=== PATIENT | female | born 1970 | race Two or more races ===

== ENCOUNTER 2023-12-20 12:02 | Emergency (ER) | payer OTHER, SELFPAY ==
[2023-12-20 12:25] VITALS: BP 124/69
[2023-12-20] MEDS: TORADOL 30 MG IM (13:08)
[2023-12-20] MEDS: ROXICODONE 5 MG PO (13:08)
--- NOTE | 2023-12-20 14:22 | ED.GENMED ---
History of Present Illness
General
Chief Complaint: Musculo-Skeletal Complaint
Time Seen by Provider: 12/20/23 12:39
History of Present Illness
History of Present Illness:
53-year-old female presents the emergency department for evaluation of left-sided low back pain rating to the left hip for the past 2 to 3 days. Denies any falls or trauma. She is able to ambulate however has excruciating pain with weightbearing
on the left lower extremity. No fevers or chills. Denies any nausea or vomiting. No recent upper respiratory tract infections. Has taken ibuprofen without relief
Review of Systems
Review of Systems
Allergies reviewed?: Yes
All Other Systems: ROS reviewed and negative except as documented in HPI and ROS
Phy Exam
Physical Exam
Physical Exam:
GEN: Well appearing, NAD, WDWN
HEENT: Oral mucosa moist, no scleral icterus
Cardiac: Regular rate
Lung: No respiratory distress, no tachypnea
MSK: Exquisite pain with any range of motion of the left hip, no obvious crepitus
Skin: Good color, no pallor or jaundice, no rashes
Neuro: AO x3, moves all extremities freely
Psych: Calm, cooperative
Course
Orders/Labs/Results
Orders:
Orders
12/20/23 12:57
Ketorolac [Toradol] 30 mg IM NOW STA
Oxycodone [Roxicodone] 5 mg PO NOW STA
CR Hip - LT w/wo Pel 2-3 Vw* Urgent
Comment:
Reason For Exam: non traumatic L hip pain
Include a pelvis x-ray?: Yes
Vital Signs
Initial and Last Documented VS:
Initial Vital Signs
Pulse Resp BP Pulse Ox
106 16 124/69 98
12/20/23 12:25 12/20/23 12:25 12/20/23 12:25 12/20/23 12:25
Last Documented Vital Signs
Pulse Resp BP Pulse Ox
84 18 108/71 98
12/20/23 14:38 12/20/23 14:38 12/20/23 14:38 12/20/23 12:25
MDM/Problems Addressed
MDM/Problems Addressed:
Patient's pain improved dramatically with meds given the emergency department. I suspect this is more of a hip issue than lumbar radiculopathy given the extreme range of motion however atypical lumbar radiculopathy is considered as well.
Nevertheless we will treat with, recommend orthopedic follow-up if symptoms persist
*Critical Care Note
Total Time (30-74mins, 75-104mins- exclusive of procedures): Not Applicable
ED Attending Note
-
Portions of this chart may have been created with voice recognition software.� Occasional wrong word or��sound alike� substitutions may have occurred due to the inherent limitations of voice recognition software.
Discharge Plan
Departure
Patient Disposition: Home (Routine Discharge)
Date of Disposition: 12/20/23
Time of Disposition: 14:24
Patient with high blood pressure during this ER visit?: No
Discharge Problem:
Acute pain of left hip
Instructions: Hip Pain ED
Prescriptions:
New
celecoxib [Celebrex] 200 mg capsule
200 mg PO BID Qty: 20 0RF
oxycodone 5 mg tablet
5 mg PO Q8H PRN (Reason: Pain) Qty: 6 0RF
Referrals:
Lazara Pastor DO [Family Provider] -
Ilya Franklin MD [Active] -
Stand Alone Forms: Return to Work
Interventions
Interventions:
*Risk Screen - Suicide Last Done: 12/20/23 12:25
*General Assessment Last Done: 12/20/23 12:25
*Neglect/Abuse Screening Last Done: 12/20/23 14:38
*ED COVID-19 Vaccine History Last Done: 12/20/23 12:25
*Nursing Disposition Last Done: 12/20/23 14:38
ED-Musculoskeletal Assessment Last Done: 12/20/23 12:21
Discharge Date and Time
Discharge Date/Time: 12/20/23 14:42
Print Language: ROMANSH
[2023-12-20 14:38] VITALS: BP 108/71
== END 2023-12-20 14:42 | disposition home or self-care (01) ==
LOC: EMR 12:02
PROVIDERS: EMERGENCY PHYSICIAN Emergency Medicine; FAMILY PHYSICIAN Internal Medicine
DX: M25.552 Pain in left hip (principal)
CPT/HCPCS: 99284; 96372; 73502